=== PATIENT | female | born 1995 | race Caucasian/White ===

== ENCOUNTER 2018-01-09 19:36 | Emergency (ER) | payer BC, OTHER ==
[~2018-01-09] VITALS: Ht 180.3 cm; Wt 86.4 kg
[~2018-01-09 19:36] MED LIST: DICY1TAB26 PO; PROM25SU8 PO; ZOFR4TAB3 SL
[2018-01-09 19:51] VITALS: BP 139/89; PULSE 79; RESP 18; TEMP 98.5; O2SAT 99
[2018-01-09] MEDS ORDERED: AZIT250T3 PO (20:31)
[2018-01-09] MEDS ORDERED: PRED20 PO (20:31)
--- NOTE | 2018-01-09 20:35 | PD ---
HPI Chief Complaint: ENT Complaint Time Seen by Provider: 20:24 Travel History International Travel<30 days: No Contact w/Intl Traveler<30days: No Traveled to known affect area: No History of Present Illness HPI 22-year-old female that presents to the ED for evaluation of bilateral ear pain. Per patient she does have cold like symptoms for about 4 days now. 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 Still having cough and congestion. Mainly the ear pain is what concerns her. Right worse than left. Per patient seems like to start on the left now. She has been applying drops in the ear with minimal relief. She has been taking [id number] remedies with minimal relief. She has no allergies to medication. She does mention to me that she recently was put on amoxicillin for a sinus infection about 2 months ago and had to be put on a different antibiotic to cover for patient on improving. No other medical issues. PFSH Past Medical History Diminished Hearing: No Immunizations Current: Yes Migraines: Yes Social History Alcohol Use: No Tobacco Use: No Substance Use: No Allergies-Medications (Allergen,Severity, Reaction): Coded Allergies: No Known Allergies (Unverified , 06/28/16) Reported Meds & Prescriptions Reported Meds & Active Scripts Active Azithromycin 250 Mg Tab 250 Mg PO DIRECTED Take 2 tabs (500 mg) on day 1 then 1 tab daily x 4 days. Prednisone 20 Mg Tab 20 Mg PO BID 5 Days Promethazine Hcl (Promethazine HCl) 25 Mg Tab 1 Tab PO Q6HR FOR NAUSEA AND VOMITING Bentyl (Dicyclomine HCl) 20 Mg Tab 20 Mg PO Q8 Zofran ODT (Ondansetron HCl) 4 Mg Tab 4 Mg SL Q6H PRN FOR NAUSEA/VOMITING Review of Systems Except as stated in HPI: all other systems reviewed are Neg Physical Exam Narrative GENERAL: Well-nourished, well-developed patient in no apparent distress. SKIN: Warm and dry. HEAD: Atraumatic. Normocephalic. EYES: Pupils equal and round reactive to light and accommodation. No scleral icterus. No injection or drainage. ENT: No nasal bleeding or discharge. Mucous membranes pink and moist. TMs are red and bulging bilaterally with right worse than left. No mastoid tenderness. Ear canals are intact bilaterally. No lymphadenopathy. Nostril mucosa is red and moist with clear mucus noted. No sinus tenderness to palpation noted. Tonsils are not enlarged or swollen. No ulvua Deviation. Tongue is midline. NECK: Trachea midline. No JVD. No meningeal signs noted CARDIOVASCULAR: Regular rate and rhythm. RESPIRATORY: No accessory muscle use. Clear to auscultation. Breath sounds equal bilaterally. GASTROINTESTINAL: Abdomen soft, non-tender, nondistended. Hepatic and splenic margins not palpable. MUSCULOSKELETAL: Extremities without clubbing, cyanosis, or edema. No obvious deformities. NEUROLOGICAL: Awake and alert. No obvious cranial nerve deficits. Motor grossly within normal limits. Five out of 5 muscle strength in the arms and legs. Normal speech. PSYCHIATRIC: Appropriate mood and affect; insight and judgment normal. Data Data Last Documented VS Vital Signs Date Time Temp Pulse Resp B/P (MAP) Pulse Ox O2 Delivery O2 Flow Rate FiO2 01/09/18 19:51 98.5 79 18 139/89 (106) 99 Orders Orders Ed Discharge Order (01/09/18 20:31) MDM Medical Decision Making Medical Screen Exam Complete: Yes Emergency Medical Condition: Yes Medical Record Reviewed: Yes Differential Diagnosis Otitis media versus otitis externa versus sinusitis versus URI Narrative Course 22-year-old female that presents to the ED for evaluation of ear pain. Patient was properly examined and was found to have signs and symptoms consistent appears to be otitis media bilaterally with right worse than left. Patient will be treated for this with prescriptions for azithromycin that she was recently put on amoxicillin over the suspect was Augmentin as the second medication. Patient was given a prescription for prednisone to help with congestion. I recommend Motrin for pain. Decongestants [id number]. Follow-up with PCP. See ED worsening symptoms. Diagnosis Primary Impression: Otitis media Qualified Codes: H66.003 - Acute suppurative otitis media without spontaneous rupture of ear drum, bilateral Patient Instructions: General Instructions Additional Instructions: Motrin (you can take up to 600 or 800 mg of it every 6 hours if needed) and Tylenol for pain and fever. You can use [id number] antihistamine as needed for runny nose and congestion. Cough drops for cough as needed. Drink plenty of fluids. Follow-up with PCP. See ED for worsening symptoms. Med/Other Pt SpecificInfo: Prescription(s) given Scripts Azithromycin (Azithromycin) 250 Mg Tab 250 MG PO DIRECTED for Infection, #6 TAB 0 Refills Take 2 tabs (500 mg) on day 1 then 1 tab daily x 4 days. Prov: Alec Doherty MD 01/09/18 Prednisone (Prednisone) 20 Mg Tab 20 MG PO BID for 5 Days, #10 TAB 0 Refills Prov: Alec Doherty MD 01/09/18 Disposition: 01 DISCHARGE HOME Condition: Stable Melvin Christian Jan 09, 2018 20:35
[2018-01-09] MEDS ORDERED: SPRI28TA PO (20:46)
== END 2018-01-09 20:54 | disposition home or self-care (01) ==
LOC: PHED 19:36 → PHEFT 20:54
DX: H66.003 Acute suppurative otitis media without spontaneous rupture of ear drum, bilateral (principal)
CPT/HCPCS: 99283